=== PATIENT | male | born 1950 | race Two or more races ===

== ENCOUNTER 2022-07-31 13:21 | Emergency (ER) | payer MEDICARE ==
[~2022-07-31] VITALS: Ht 165.1 cm; Wt 95.3 kg
--- NOTE | 2022-07-31 13:52 | NUR ---
PT BIB FAMILY MEMBER S/P TRIP AND FALL. PT DENIES LOC. PT DENIES HEAD INJURY. PT DENIES THE USE OF BLOOD THINNERS. MILD SWELLING NOTED TO RIGHT RING FINGER. PT ABLE TO MOVE EXTREMITY WITHOUT ISSUE. STRONG RADIAL PULSE B/L
[2022-07-31] MEDS ORDERED: ACETAMINOPHEN ES 500 MG TABLET PO ONE (14:30)
[2022-07-31] MEDS ORDERED: ACETAMINOPHEN ES 500 MG TABLET ONE (14:51)
[2022-07-31 16:13] VITALS: BP 175/103
== END 2022-07-31 16:23 | disposition home or self-care (01) ==
LOC: ER 13:33
DX: M79.644 Pain in right finger(s) (principal); M25.561 Pain in right knee; I10 Essential (primary) hypertension; E11.9 Type 2 diabetes mellitus without complications
CPT/HCPCS: 73130-TC; 73564-TC

== ENCOUNTER 2025-03-16 14:30 | Emergency (ER) | payer MEDICARE ==
[~2025-03-16] VITALS: Ht 165.1 cm; Wt 82.6 kg
[2025-03-16 14:46] VITALS: BP 156/103; TEMP 98.5
[2025-03-16] MEDS: VALACYCLOVIR HCL 500 MG TABLET PO ONE (15:36)
[2025-03-16 15:39] LABS: PLATELET COUNT (AUTO) 233 K/uL (150-450); RED BLOOD CELL COUNT(AUTO) 6.08 MIL/uL (4.5-6.0); RED CELL DISTRIBUTION WIDTH 16.1 % (11.5-15.0); WHITE BLOOD COUNT (AUTO) 7.5 K/uL (4.3-11.0)
[2025-03-16 15:52] LABS: CALCIUM, SERUM 9.1 mg/dL (8.5-10.1); CREATININE 1.4 mg/dL (0.6-1.3); SODIUM SERUM 136.0 mmol/L (136-145); UREA NITROGEN, BLOOD 42.0 mg/dL (7-18)
[2025-03-16] MEDS ORDERED: CEPH500C2 PO (16:25)
[2025-03-16] MEDS ORDERED: VALA10002 PO (16:25)
[2025-03-16] MEDS ORDERED: INSULIN REGULAR, HUMAN 100 UNIT/ML 10 ML VIAL ONE (16:46)
[2025-03-16] MEDS: INSULIN REGULAR, HUMAN 100 UNIT/ML 10 ML VIAL SQ ONE (16:49)
[2025-03-16 17:20] VITALS: O2SAT 95
== END 2025-03-16 17:48 | disposition home or self-care (01) ==
LOC: ER 14:38
DX: E11.65 Type 2 diabetes mellitus with hyperglycemia (principal); E11.29 Type 2 diabetes mellitus with other diabetic kidney complication; N28.9 Disorder of kidney and ureter, unspecified; B02.9 Zoster without complications; I10 Essential (primary) hypertension; Z79.624 Long term (current) use of inhibitors of nucleotide synthesis
CPT/HCPCS: 99283; 85025; 80048; 36415; 82962 ×2; J1815